=== PATIENT | female | born 1955 | race Caucasian/White ===

== ENCOUNTER → 2017-03-02 | Outpatient (CLI) | payer OTHER | LOC: MAMMO 08:47 | DX: Z12.31 Encounter for screening mammogram for malignant neoplasm of breast (principal) | CPT/HCPCS: G0202 ==

== ENCOUNTER → 2018-11-20 | Outpatient (CLI) | payer OTHER | LOC: MAMMO 15:56 | DX: Z12.31 Encounter for screening mammogram for malignant neoplasm of breast (principal) ==

== ENCOUNTER → 2020-01-14 | Outpatient (CLI) | payer OTHER | LOC: MAMMO 08:48 | DX: Z12.31 Encounter for screening mammogram for malignant neoplasm of breast (principal) ==